=== PATIENT | female | born 1990 | race Caucasian/White ===

== ENCOUNTER 2018-06-24 08:52 | Emergency (ER) | payer OTHER ==
[~2018-06-24] VITALS: Ht 154.9 cm; Wt 83.9 kg
[~2018-06-24 08:52] MED LIST: KETO10TA2 PO; LEVSIN0.125 MG SL; TAMS0.4C PO; ZANTAC300 MG PO; ZYPREXA5 MG PO
== END 2018-06-24 13:15 | disposition home or self-care (01) ==
LOC: ER 08:52
DX: R10.11 Right upper quadrant pain (principal); R10.31 Right lower quadrant pain

== ENCOUNTER 2018-10-03 23:04 | Emergency (ER) | payer OTHER ==
[~2018-10-03] VITALS: Ht 154.9 cm; Wt 79.4 kg
[2018-10-04] MEDS ORDERED: ZANTAC300 MG PO (01:39)
== END 2018-10-04 01:43 | disposition home or self-care (01) ==
LOC: ER 23:04
DX: K29.60 Other gastritis without bleeding (principal)

== ENCOUNTER 2018-12-25 10:28 | Emergency (ER) | payer OTHER ==
[~2018-12-25] VITALS: Ht 154.9 cm; Wt 77.1 kg
== END 2018-12-25 19:37 | disposition home or self-care (01) ==
LOC: ER 10:28
DX: K52.89 Other specified noninfective gastroenteritis and colitis (principal)

== ENCOUNTER 2019-07-07 23:54 | Emergency (ER) | payer OTHER ==
[~2019-07-07] VITALS: Ht 154.9 cm; Wt 75.3 kg
[2019-07-08] MEDS ORDERED: RESTORIL15 M1 (00:16)
== END 2019-07-08 | disposition left against medical advice (07) ==
LOC: ER 23:54
DX: Z53.20 Procedure and treatment not carried out because of patient's decision for unspecified reasons (principal)

== ENCOUNTER 2021-06-04 11:19 | Emergency (ER) | payer OTHER ==
[~2021-06-04] VITALS: Ht 154.9 cm; Wt 90.7 kg
[~2021-06-04 11:19] MED LIST changes: +RESTORIL15 M1
[2021-06-04] MEDS ORDERED: CLONAZEPAM1 MG PO (11:29)
[2021-06-04] MEDS ORDERED: TRAZODONE HCL50 MG PO (11:29)
[2021-06-04] MEDS ORDERED: HYDROXYZINE PAM50 MG PO (11:29)
[2021-06-04] MEDS ORDERED: ARIPIPRAZOLE20 MG PO (11:30)
[2021-06-04] MEDS ORDERED: DALMANE30 MG PO (11:30)
[2021-06-04] MEDS ORDERED: VALPROIC A250 MG/5 M PO (11:30)
[2021-06-04] MEDS ORDERED: LEVSIN/SL0.125 MG PO (15:26)
[2021-06-04] MEDS ORDERED: PEPCID AC20 MG PO (15:26)
[2021-06-04] MEDS ORDERED: INTESTINEX680 M1 PO (15:26)
== END 2021-06-04 16:16 | disposition home or self-care (01) ==
LOC: ER 11:19
DX: R14.0 Abdominal distension (gaseous) (principal)

== ENCOUNTER 2021-08-14 21:35 | Emergency (ER) | payer OTHER ==
[~2021-08-14] VITALS: Ht 152.4 cm; Wt 95.3 kg
[~2021-08-14 21:35] MED LIST changes: +ARIPIPRAZOLE20 MG PO; +CLONAZEPAM1 MG PO; +DALMANE30 MG PO; +HYDROXYZINE PAM50 MG PO; +INTESTINEX680 M1 PO; +LEVSIN/SL0.125 MG PO; +PEPCID AC20 MG PO; +TRAZODONE HCL50 MG PO; +VALPROIC A250 MG/5 M PO
== END 2021-08-14 23:05 | disposition home or self-care (01) ==
LOC: ER 21:35
DX: S50.812A Abrasion of left forearm, initial encounter (principal); L53.8 Other specified erythematous conditions; T78.49XA Other allergy, initial encounter; W57.XXXA Bitten or stung by nonvenomous insect and other nonvenomous arthropods, initial encounter; Y93.89 Activity, other specified; Y92.89 Other specified places as the place of occurrence of the external cause; Y99.8 Other external cause status

== ENCOUNTER → 2025-05-03 | Emergency (ER) | payer OTHER ==
[~2025-05-03] MED LIST changes: +ABILIFY20 MG; +CLONAZEPAM1 MG; +DALMANE30 MG; +DEPAKOTE ER500 MG
== END | disposition home or self-care (01) ==
LOC: ER 01:12
DX: M75.51 Bursitis of right shoulder (principal)
CPT/HCPCS: 96372; 99282; J1100; J1885

== ENCOUNTER 2025-08-17 20:11 | Emergency (ER) | payer OTHER ==
[~2025-08-17] VITALS: Ht 154.9 cm; Wt 90.7 kg
[2025-08-17 21:57] VITALS: BP 116/77; O2SAT 96
[2025-08-17] MEDS ORDERED: FAMOTIDINE/PF 20 MG/2 ML VIAL IV ONE (23:00)
[2025-08-17] MEDS ORDERED: KETOROLAC TROMETHAMINE 30 MG VIAL IM ONE (23:00)
[2025-08-17] MEDS ORDERED: KETOROLAC TROMETHAMINE 30 MG VIAL ONE (23:27)
[2025-08-17] MEDS ORDERED: FAMOTIDINE/PF 20 MG/2 ML VIAL ONE (23:27)
[2025-08-17 23:57] LABS: BASO % 0.4 % (0.1-1.2); EOS # 0.17 (0.04-0.54); EOS % 1.3 % (0.7-7.0); LYMPH # 2.77 (1.18-3.74); LYMPH % 21.1 % (19.3-53.1); MEAN PLATELET VOLUME 9.90 fl (9.4-12.4); MONO # 0.96 (0.24-0.82); MONO % 7.3 % (4.7-12.5); NEUT # 9.13 (1.56-6.13); NEUT % 69.6 % (34.0-71.1); RED CELL DISTRIBUTION WIDTH 15.2 % (11.6-14.4)
[2025-08-18 00:27] LABS: ALT/SGPT 31.0 U/L (12-78); AST/SGOT 15.0 U/L (15-37); BILIRUBIN TOTAL 0.29 mg/dL (0.3-1.2); BUN CREA RATIO 14.0 (7.0-25.0); CREATININE SERUM 0.65 mg/dL (0.55-1.02); GFR 102.56; GLOBULINA 4.6 G/DL (2.4-3.5); GLUCOSE FASTING 104.0 mg/dL (65-100); OSMOLALITY SERUM 278.0 MOSM/KG (275-295)
[2025-08-18 00:45] LABS: URINE APPEARANCE Clear; URINE BILIRRUBIN Negative (NEGATIVE); URINE BLOOD Negative; URINE COLOR Yellow; URINE GLUCOSE Negative (NEGATIVE); URINE KETONE Negative (NEGATIVE); URINE LEUKOCYTE Negative; URINE NITRATE Negative; URINE PROTEIN Negative (NEGATIVE); URINE UROBILINOGEN 0.2 E.U./dl
[2025-08-18 00:49] LABS: URINE BACTERIA 51.5 uL (0.0-1933); URINE EPITHELIAL CELLS 19.0 uL (0.0-38.8); URINE RBC 3.0 uL (0.0-20.8); URINE WBC 3.5 uL (0.0-23.2)
[2025-08-18 01:01] LABS: URINE CAST 0.00 uL (0.0-1.40)
[2025-08-18] MEDS ORDERED: DIPHENHYDRAMINE HCL 50 MG/ML VIAL 1ML ONE (01:26)
[2025-08-18] MEDS ORDERED: METHYLPREDNISOLONE SOD SUCC 125 MG VIAL ONE (01:27)
[2025-08-18] MEDS ORDERED: METHYLPREDNISOLONE SOD SUCC 125 MG VIAL IV ONE (01:45)
[2025-08-18] MEDS ORDERED: DIPHENHYDRAMINE HCL 50 MG/ML VIAL 1ML IV ONE (01:45)
[2025-08-18] MEDS ORDERED: MONISTAT 315 GM VAG (03:11)
[2025-08-18] MEDS ORDERED: MACROBID 100 M100 MG PO (03:11)
[2025-08-18] MEDS ORDERED: PEPCID AC20 MG PO (03:11)
== END 2025-08-18 03:49 | disposition home or self-care (01) ==
LOC: ER 20:11
PROVIDERS: General Practice
DX: N76.0 Acute vaginitis (principal); R30.0 Dysuria; Z91.013 Allergy to seafood
CPT/HCPCS: 36415; 74177; 96365; 96372; 99284; J1885; J3490; Q9965